=== PATIENT | male | born 1970 | race Caucasian/White ===

== ENCOUNTER 2016-09-17 14:58 | Emergency (ER) | payer OTHER, BC ==
[~2016-09-17] VITALS: Ht 177.8 cm; Wt 100.7 kg
[2016-09-17 15:19] VITALS: BP 148/97
[2016-09-17] MEDS ORDERED: MOTRIN600 MG PO (17:17)
== END 2016-09-17 17:32 | disposition home or self-care (01) ==
LOC: EME 14:58
DX: S16.1XXA Strain of muscle, fascia and tendon at neck level, initial encounter (principal); S39.012A Strain of muscle, fascia and tendon of lower back, initial encounter; V49.60XA Unspecified car occupant injured in collision with unspecified motor vehicles in traffic accident, initial encounter
CPT/HCPCS: 99281; 99284